=== PATIENT | male | born 1965 | race Caucasian/White ===

== ENCOUNTER 2020-02-14 17:53 | Emergency (ER) | payer OTHER, SELFPAY | END 2020-02-14 18:00 | disposition left against medical advice (07) | LOC: EXPCOLL 18:01 | PROVIDERS: Emergency Provider Nurse Practitioner | DX: Z53.21 Procedure and treatment not carried out due to patient leaving prior to being seen by health care provider (principal) | CPT/HCPCS: 99199 ==

== ENCOUNTER 2020-02-14 18:12 | Emergency (ER) | payer OTHER, SELFPAY ==
--- NOTE | ~2020-02-14 | XR_ITS ---
EXAMINATION: XR chest 1V portable DATE: 02/14/2020 19:50 INDICATION: Shortness of breath. Chest tightness. TECHNIQUE: A single frontal view of the chest was obtained. COMPARISON: Chest single view 10/26/2009 FINDINGS: The chest demonstrates clear lungs without pneumonia, pleural effusion, or pneumothorax. Th e heart size is normal. IMPRESSION: 1. No acute cardiopulmonary disease. Reviewed, dictated and finalized at location A.
[2020-02-14 18:22] VITALS: BP 110/81; PULSE 89; RESP 16; TEMP 36.8; O2SAT 96
--- NOTE | 2020-02-14 18:23 | ECG_ITS ---
Measurements Intervals [place] Rate: 89 P: 19 CO: 180 QRS: -53 QRSD: 117 T: 27 QT: 361 QTc: 440 Interpretive Statements SINUS RHYTHM LEFT ANTERIOR FASCICULAR BLOCK ABNORMAL ECG Electronically Signed On 02-15-2020 7:47:10 CDT by Naldo Lopez D.O.
[2020-02-14 19:10] VITALS: BP 116/73; PULSE 84; RESP 17; O2SAT 96
[2020-02-14 19:21] VITALS: BP 107/84; BP 108/80; BP 109/84; PULSE 101; PULSE 85; PULSE 91
--- NOTE | 2020-02-14 20:08 | ED.GENADULT ---
HPI - General Adult General Chief complaint: Shortness of Breath/Dyspnea Stated complaint: short of breath, dizziness Time Seen by Provider: 02/14/20 19:01 History of Present Illness HPI narrative: Patient is a 54-year-old male who presents the ER with fatigue and dizziness. Patient reports over the last week his exertional capacity has plummeted and short of breath with minor activities. 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 He reports today his urine was very dark in appearance despite trying to stay hydrated when he is working outside. He reports when he goes from sitting to standing he becomes dizzy. No nausea/vomiting/rotational dizziness. He reports he is also been having some exertional fatigue over the last 4 to 6 months but is markedly worsened in the last week. No chest pain/chest pressure/chest tightness. He is not diaphoretic with ambulation. No previous heart history. Related Data Home Medications Medication Instructions Recorded Confirmed [id number] K tablet PO 02/14/20 [Adults Multivitamin] vitamin B complex 1 cap PO DAILY 02/14/20 Allergies Allergy/AdvReac Type Severity Reaction Status Date / Time No Known Allergies Allergy Verified 02/14/20 19:12 Review of Systems Review of Systems: All systems reviewed & are unremarkable except as noted in HPI and below Constitutional: Constitutional: Denies chills, Reports fatigue, Denies fever(s) and Reports weakness ENT: Denies nasal congestion and Denies sore throat Cardiovascular: Cardiovascular: Denies chest pain, Denies rapid heart rate and Denies radiating jaw, neck or arm pain Respiratory: Respiratory: Denies chest congestion, Denies cough, Reports dyspnea and Denies wheezing Gastrointestinal: Gastrointestinal: Denies abdominal pain, Denies nausea and Denies vomiting Neurologic: Reports dizziness, Denies syncope, Denies focal weakness and Denies numbness PMFSH Past Medical History Medical History (Updated 02/14/20 @ 21:57 by Jovi Clemens MD) Benign essential hypertension Chronic depression Mixed hyperlipidemia Type 2 diabetes mellitus without complications Umbilical hernia without mention of obstruction or gangrene Surgical History Surgical History (Updated 02/14/20 @ 20:10 by Jovi Clemens MD) H/O umbilical hernia repair Social History Social History Smoking status: Never smoker Alcohol intake: current Exam Narrative: Exam Narrative: GENERAL: Well-appearing, well-nourished, and in no acute distress. HEAD: Normocephalic, atraumatic. CHEST: Clear to auscultation. No respiratory distress. HEART: Regular rate and rhythm. No murmur heard. Normal peripheral pulses. ABDOMEN: Soft, nontender, nondistended. EXTREMITIES: Normal range of motion. No edema. SKIN: Warm, dry, no rash. NEURO: Alert and oriented x3. PSYCH: Normal mood and affect. Course Course Emergency Course: Patient hydrated. Orthostatics with tachycardia but no drop in pressure. Patient reports he has a sleep study scheduled for couple days from now. Reports he has been sleeping all night. Suspect this is the source of his significant fatigue. Recommend follow-up with PCP as he may require stress testing if he develops chest pain or sleep study is not indicative of KHOA. Vital Signs Vital signs: Vital Signs Temperature 98.3 F 02/14/20 18:22 Pulse Rate 89 02/14/20 18:22 Respiratory Rate 16 02/14/20 18:22 Blood Pressure 110/81 02/14/20 18:22 Pulse Oximetry 96 02/14/20 18:22 Temperature 98.3 F 02/14/20 18:22 Pulse Rate 87 02/14/20 20:20 Respiratory Rate 18 02/14/20 20:20 Blood Pressure 118/80 02/14/20 20:20 Pulse Oximetry 98 02/14/20 20:20 Medical Decision Making Vital Signs Vital Signs: Vital Signs Temperature 98.3 F 02/14/20 18:22 Pulse Rate 89 02/14/20 18:22 Respiratory Rate 16 02/14/20 18:22 Blood Pressure 110/81 02/14/20 18:22 Pulse Oximetry
[2020-02-14 20:20] VITALS: BP 118/80; PULSE 87; RESP 18; O2SAT 98
[2020-02-14] MEDS: SODIUM CHLORIDE 0.9% IV 1,000 ML 999 ML IV CONT (20:20)
[2020-02-14 20:38] LABS: Basophils Percent Auto 0.3 % (0.2-1.2); Eosinophils Absolute Auto 0.2 K/mm3 (0-0.3); Eosinophils Percent Auto 1.5 % (0-4.4); Hematocrit 42.6 % (42.0-52.0); Hemoglobin 14.6 g/dL (14.0-18.0); Immature Granulocyte Absolute 0.06 K/mm3 (0.00-0.031); Immature Granulocyte Percent A 0.6 % (0-0.5); Lymphocytes Absolute Auto 2.29 K/mm3 (0.9-3.2); Mean Corpuscular HGB Conc 34.3 g/dl (32-36); Mean Corpuscular Hemoglobin 31.9 pg (26-34); Mean Corpuscular Volume 93.2 fl (80-100); Mean Platelet Volume 9.7 fl (7.4-10.4); Monocytes Absolute Auto 1.1 K/mm3 (0.1-0.6); Monocytes Percent Auto 10.6 % (2.6-8.5); Neutrophils Absolute Auto 6.8 K/mm3 (1.3-6.7); Platelet Count Result 239 k/mm3 (150-375); Red Blood Count 4.57 M/mm3 (4.6-6.20); Red Cell Distribution Width 12.1 % (11.5-14.5); White Blood Count 10.4 K/mm3 (4.5-10.0)
[2020-02-14 20:48] LABS: Partial Thromboplastin Time 28.6 SECONDS (22.3-36.8); Prothrombin Time 13.3 Seconds (11.1-14.7)
[2020-02-14 20:50] LABS: Alanine Aminotransferase 25 U/L (4-50); Albumin Level 4.2 g/dL (3.5-5.1); Alkaline Phosphatase 48 U/L (38-126); Aspartate Amino Transferase 22 U/L (17-59); Bilirubin,Total 0.6 mg/dL (0.2-1.3); Blood Urea Nitrogen 31 mg/dL (9-20); Calcium 9.2 mg/dL (8.4-10.2); Carbon Dioxide 30 mmol/L (22-30); Chloride 99 mmol/L (98-107); Creatine Kinase 60 U/L (55-170); Estimated CRCL calculation 88 ml/min; Estimated Glomerular Filt Rate 58; Glucose 101 mg/dL (75-110); Potassium 4.1 mmol/L (3.4-5.0); Sodium 138 mmol/L (137-145)
[2020-02-14 21:01] LABS: Troponin I < 0.012 ng/mL (0.000-0.034)
[2020-02-14 22:05] VITALS: BP 117/69; PULSE 79; RESP 18; O2SAT 97
[2020-02-14 22:22] VITALS: BP 126/85; PULSE 78; RESP 18; O2SAT 97
== END 2020-02-14 22:23 | disposition home or self-care (01) ==
PROVIDERS: Emergency Provider Emergency Medicine; PCP Family Medicine
DX: R53.83 Other fatigue (principal); I10 Essential (primary) hypertension; E78.2 Mixed hyperlipidemia; E11.9 Type 2 diabetes mellitus without complications; I44.4 Left anterior fascicular block
CPT/HCPCS: 36415; 71045; 80053; 82550; 84484; 85025; 85610; 85730; 93005; 96360; 99284; J7030

== ENCOUNTER 2020-02-21 11:49 | Outpatient (CLI) | payer OTHER, SELFPAY ==
--- NOTE | 2020-02-22 12:22 | SLEEP_ITS ---
Home Sleep Test DATE OF STUDY: 02/21/2020 ORDERING PROVIDER: Promise Goldsmith, Physician [employer] Supervisor. REASON FOR THIS STUDY: Obstructive sleep apnea. HISTORY: This patient is a 54-year-old male, 6 feet 6 inches tall, 275 pounds. Body mass index is 31.7, elevated. He has a history of loud snoring and stopping breathing while he sleeps with frequent tossing and turning, which has been going on for over 20 years. He is tired all day every day. He feels foggy throughout the day and cannot think straight. This is severely debilitating for him. He has difficulty falling asleep and staying asleep. He wakes up throughout the night. He has a difficult time waking up in the morning. He constantly awakens from sleep feeling short of breath, constantly snores and it is constantly loud enough that others complained about it. He occasionally has trouble sleeping with a cold. He constantly gasps for breath at night and has breathing problems reported to him by others. He occasionally sweats excessively at night. He frequently wakes up with his heart pounding or beating irregularly at night. He constantly falls asleep during the day, but never involuntarily, rarely while driving. He does not have loss of muscle tone with strong emotion. He does not have difficulty performing his job other than being sleepy. 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 He does not feel paralyzed on waking or falling asleep. He does not have vivid dreamlike scenes upon awakening or falling asleep. He is never afraid to go to sleep. He denies nightmares. He does not remember his dreams. He constantly has racing thoughts. He occasionally feels sad, depressed, anxious and has muscular tension. He frequently notices parts of his body jerking. He occasionally kicks at night and occasionally has crawly achy feelings in the legs. He rarely has leg pain at night. He rarely has morning jaw pain. He rarely grinds his teeth at night, rarely is bothered by pain during the day and rarely is awakened by pain at night. He frequently wakes up feeling stiff in the morning, occasionally with sore achy muscles, occasionally with pain in the neck and spine. He has palpitations, bowel disturbances, dizziness, fatigue, memory problems, insomnia, concentration difficulties. Bedtime is 11 to 11:30 p.m., sometimes falling asleep quickly, other times taking longer. He typically awakens 4 to 5 times at night and he may stay awake for 5 minutes or several hours. When he awakens, he will look at the clock and worry about how much sleep he may be able to get. He wakes up at 5:30 in the morning. He estimates 6-1/2 hours of sleep on a good night. Weekend schedule is the same. He does take naps. A short nap can help him feel better. He is drowsy in the morning for 3 hours or longer. He feels better in the evenings than in the morning. MEDICAL COMORBIDITIES: 1. Diabetes. 2. Hypertension. 3. Nasal allergies. 4. Anxiety. 5. Hyperlipidemia. MEDICATIONS: 1. Metformin a 1000 mg b.i.d. 2. Januvia 100 mg daily. 3. Lisinopril 10 mg a day. 4. Multivitamins daily. 5. B12 daily. HABITS: Never smoked tobacco. Caffeine, 1 can on the weekends. Alcohol, 2 beverages per month. No recreational drugs. DESCRIPTION OF THE STUDY: On the [place] Sleepiness Scale, the score is 15, elevated. This study was conducted as an unattended type 3 portable home sleep test using 4 channel monitoring with respiratory effort channel, snoring channel, oxygen saturation channel, and heart rate channel. This study was scored using CMS guidelines. Duration was 6 hours 38 minutes. The apnea-hypopnea index is elevated at 12, oxygen desaturation index 11, lowest desaturation 87%. He had 11 apneas, which were all obstructive. He had 67 hypopn
== END 2020-02-21 11:50 | disposition home or self-care (01) ==
LOC: ANHCSM 11:49
PROVIDERS: PCP Family Medicine; Visit Provider Physician Assistant
DX: G47.33 Obstructive sleep apnea (adult) (pediatric) (principal)
CPT/HCPCS: 95806

== ENCOUNTER 2020-04-01 03:06 | Outpatient (CLI) | payer OTHER, SELFPAY ==
[2020-04-01 18:37] LABS: SARS-CoV-2 RNA PCR Negative
== END 2020-04-01 03:07 | disposition home or self-care (01) ==
LOC: ANHCOVIDDT 03:07
PROVIDERS: PCP Family Medicine; Visit Provider Internal Medicine Cardiovascular Disease
DX: Z01.812 Encounter for preprocedural laboratory examination (principal); Z20.828 Contact with and (suspected) exposure to other viral communicable diseases
CPT/HCPCS: 87635; C9803; U0003

== ENCOUNTER 2020-04-03 05:24 | Day surgery (SDC) | payer OTHER, SELFPAY ==
[2020-04-02 15:24] VITALS: BMI 31.8
[2020-04-03] VITALS (8 sets, daily range): BP systolic 117–157; BP diastolic 71–108; PULSE 56–70; RESP 14–19; TEMP 36.2; O2SAT 93–100; BMI 29.5
[2020-04-03 07:35] LABS: Basophils Percent Auto 0.3 % (0.2-1.2); Eosinophils Absolute Auto 0.1 K/mm3 (0-0.3); Eosinophils Percent Auto 1.8 % (0-4.4); Hematocrit 43.5 % (42.0-52.0); Hemoglobin 15.4 g/dL (14.0-18.0); Immature Granulocyte Absolute 0.04 K/mm3 (0.00-0.031); Immature Granulocyte Percent A 0.6 % (0-0.5); Lymphocytes Absolute Auto 1.32 K/mm3 (0.9-3.2); Lymphocytes Percent Auto 18.5 % (18.3-44.2); Mean Corpuscular HGB Conc 35.4 g/dl (32-36); Mean Corpuscular Hemoglobin 32.8 pg (26-34); Mean Corpuscular Volume 92.6 fl (80-100); Mean Platelet Volume 9.2 fl (7.4-10.4); Monocytes Absolute Auto 0.6 K/mm3 (0.1-0.6); Monocytes Percent Auto 8.7 % (2.6-8.5); Neutrophils Percent Auto 70.1 % (45.5-73.1); Platelet Count Result 256 k/mm3 (150-375); Red Cell Distribution Width 11.9 % (11.5-14.5); White Blood Count 7.1 K/mm3 (4.5-10.0)
[2020-04-03 07:47] LABS: Anion Gap 7 mmol/L (8-16); Blood Urea Nitrogen 13 mg/dL (9-20); Carbon Dioxide 26 mmol/L (22-30); Chloride 104 mmol/L (98-107); Estimated CRCL calculation 137 ml/min; Estimated Glomerular Filt Rate > 60; Glucose 170 mg/dL (75-110); Potassium 4.2 mmol/L (3.4-5.0); Sodium 137 mmol/L (137-145)
--- NOTE | 2020-04-03 07:48 | SUR.PREOP ---
Patient arrived to [facility] at 0730 ambulatory and accompanied by . PIV initiated and labs drawn. VSS. Patient and updated on plan of care and verbalize understanding. All questions from patient and answered by RN. Will continue to monitor.
--- NOTE | 2020-04-03 09:06 | WPDMODSED ---
Moderate Sedation Note-Pt Data Patient Data Allergies Allergy/AdvReac Type Severity Reaction Status Date / Time No Known Allergies Allergy Verified 04/02/20 15:21 Home Medications Medication Instructions Recorded Confirmed Type vitamin B complex 1 cap PO DAILY 02/14/20 04/02/20 History lisinopril 10 mg tablet 10 mg PO DAILY #90 tablet 02/27/20 04/02/20 Rx metformin 1,000 mg tablet 1,000 mg PO BID #180 tablet 02/27/20 04/02/20 Rx sitagliptin 100 mg tablet 100 mg PO DAILY #90 tablet 02/27/20 04/02/20 Rx aspirin 81 mg PO DAILY 04/02/20 04/02/20 History metoprolol tartrate 25 mg PO BID 04/02/20 04/02/20 History nitroglycerin 0.4 mg SUBLINGUAL Q5-15M PRN 04/02/20 04/02/20 History Current Medications: Active Medications Sodium Chloride (Normal Saline Iv) 500 mls @ 100 mls/hr IV CONT .Q5H ELISEO Sedation/Anesthesia: No previous sedation/anesthesia problems (including family history). [facility] Past Medical History Medical History Benign essential hypertension Chronic depression Mixed hyperlipidemia Type 2 diabetes mellitus without complications Umbilical hernia without mention of obstruction or gangrene Surgical History Surgical History H/O umbilical hernia repair Social History Social History Smoking status: Never smoker Alcohol intake: never Substance use: never Living arrangements: with family Mod Sed Physical Exam Physical Exam Pre Procedural Exam: Normal: Appearance, Eyes, Ears, Nose, Neck, Throat, Airway, Lungs, Heart Size, Heart Rate, Heart Rhythm, Neuro Exam, Abdomen, Liver, Kidneys, Spleen, Breasts, Genitalia, Extremities and Skin Hours since solid foods: 8 Hours since liquid intake: 8 Internal Medicine - PN: Obj Da Vital Signs Vital Signs: Vital Signs - 24 hr 04/03/20 07:40 Temperature 36.2 C L Pulse Rate 66 Respiratory Rate 15 Blood Pressure 157/108 H Pulse Oximetry 97 Meds/Results Medications: Active Medications Generic Name Dose Route Start Last Admin Trade Name Freq PRN Reason Stop Dose Admin Sodium Chloride 500 mls @ 100 mls/hr 04/03/20 06:00 Normal Saline Iv IV CONT .Q5H ELISEO Labs CBC & Chem 7: 04/03/20 07:29 04/03/20 07:30 Labs: Laboratory Results - last 24 hr 04/03/20 04/03/20 07:29 07:30 WBC 7.1 RBC 4.70 Hgb 15.4 Hct 43.5 MCV 92.6 MCH 32.8 MCHC 35.4 RDW 11.9 Plt Count 256 MPV 9.2 Immature Gran % (Auto) 0.6 H Neut % (Auto) 70.1 Lymph % (Auto) 18.5 [place] % (Auto) 8.7 H Eos % (Auto) 1.8 Baso % (Auto) 0.3 Lymph # (Auto) 1.32 [place] # (Auto) 0.6 Eos # (Auto) 0.1 Baso # (Auto) 0.0 Abs Immat Gran (auto) 0.04 H Absolute Neuts (auto) 5.0 Absolute Nucleated RBC 0.0 Nucleated RBC % 0.0 Sodium 137 Potassium 4.2 Chloride 104 Carbon Dioxide 26 Anion Gap 7 L BUN 13 D Creatinine 0.70 Estim Creat Clear Calc 137 Estimated GFR > 60 Glucose 170 H Calcium 9.0 ASA Classification/Sedation ASA Classification/Sedation ASA Class: I Emergent: No Risks: Risks, benefits and alternatives explained and patient/family accepted plan for sedation. Patient re-evaluated immediately prior to sedation.
--- NOTE | 2020-04-03 09:06 | WPDHPUPDATE1 ---
History and Physical Update Update Date/Time: 04/03/20 09:06 History and Physical has been reviewed, including an updated exam of the patient. There are NO changes in the patient's condition. Risks, benefits, and alternatives have been discussed and questions answered. Patient agrees to proceed with procedure.
--- NOTE | 2020-04-03 09:06 | WPDCARDPROC ---
Cardiac Cath Procedure Note Date of procedure:: 04/03/20 Performing physician:: Phyllis Melgar MD Date of service 04/03/2020 Indication:: abnormal stress test Brief clinical history:: 54-year-old patient with past history of diabetes, sleep apnea on CPAP, hypertension, hyperlipidemia was evaluated by Dr galeana for exertional shortness of breath, chest pain. He underwent treadmill exercise EKG stress test with EKG being negative for ischemia however there was a drop in blood pressure and therefore he was brought into [facility] to define coronary anatomy. Procedure Procedure performed:: 1-Moderate sedation that started at 8:45 a.m.and ended at 9:01 a.m. with a total duration 60 minutesusing 2mg of Versed and 50mcg fentanyl. The registered nurse was Kamar Estrada. 2-Selective left and right coronary angiogram. 3-Left heart catheterization with measurement of LVEDP and measurement of gradient across aortic valve. 4-Right common femoral arterial angiogram. 5-Deployment of 6 British Angio-Seal. Sedation/Medication given:: Moderate sedation. Access site:: Right common femoral artery. Estimated blood loss:: 10cc Procedure note:: After informed consent patient was brought in to [facility] with the was draped and prepped in usual manner. Moderate sedation was given and the right groin was infiltrated using 1% lidocaine. Five British sheath was obtained using micropuncture needle and the modified Seldinger technique. Selective left coronary angiogram was done using JL4 catheter with the tip of the catheter placed in the left main coronary artery. Selective right coronary angiogram was done using JR4 catheter with the tip of the catheter placed to the right coronary artery. After that 5 British pigtail catheter was advanced across the aortic valve into the left ventricle with measurement of LVEDP and measurement of gradient across aortic valve. Right common femoral arterial angiogram was done. Findings:: 1- left coronary artery is a large artery that divides into large LAD, large circumflex artery and small ramus intermedius. Left main is free of disease. 2- left anterior descending artery is a large artery that runs and wraps around the apex. free of disease. small diagonal 1 and 2 branches without significant disease. 3- ramus intermedius small in size free of disease 3- leftcircumflex artery is a large artery and free of disease. large OM1 branch that is free of disease 4- right coronary artery is very large artery and dominant and free of disease 5- LVEDP was 7 mm Hg and no gradient across aortic valve. 6- opening arterial pressure was 125/99 and closing pressure was 105/70 7- right femoral artery angiogram shows no significant disease in the right common femoral artery. Conclusion:: normal coronary arteries. Assessment and Plan Additional Plan continue risk factor modification for CAD
--- NOTE | 2020-04-03 12:46 | SUR.PHASEII ---
1215-pt given D/C orders and instructions. Questions answered and verbalized understanding. AOx4. Groin soft and non-tender, no evidence of bleeding or hematoma noted. Strong right pedal pulse noted. Taken via wheelchair to waiting vehicle. No distress noted or verbalized at time of departure.
== END 2020-04-03 12:15 | disposition home or self-care (01) ==
LOC: ANHCATHLAB 05:24 → ANHLAB 09:12 → ANHCATHLAB 04-21 07:12
PROVIDERS: PCP Family Medicine; Visit Provider Internal Medicine Cardiovascular Disease
PROC: 4A023N7 Measurement of Cardiac Sampling and Pressure, Left Heart, Percutaneous Approach (ICD-10-PCS; CPT 93452; principal; 2020-04-03 08:30)
DX: R94.39 Abnormal result of other cardiovascular function study (principal); R07.9 Chest pain, unspecified; R06.02 Shortness of breath; I10 Essential (primary) hypertension; E78.5 Hyperlipidemia, unspecified; G47.33 Obstructive sleep apnea (adult) (pediatric); E11.9 Type 2 diabetes mellitus without complications; Z79.84 Long term (current) use of oral hypoglycemic drugs; Z79.82 Long term (current) use of aspirin
CPT/HCPCS: 36415; 80048; 85025; 87635; 93458; C1760; C1887; C1894; C9803; G0269; J1644; J2250; J3010; U0003